=== PATIENT | female | born 1975 | race African-American/Black ===

== ENCOUNTER 2020-02-21 07:54 | Emergency (ER) | payer OTHER ==
[~2020-02-21] VITALS: Ht 165.1 cm; Wt 81.6 kg
[2020-02-21 08:30] LABS: BASOPHILS # (AUTO) 0.1 /CMM (0.0-0.2); EOSINOPHILS % (AUTO) 5.6 % (0.0-6.0); HEMATOCRIT 37 % (33-45); HEMOGLOBIN 11.8 g/dL (11.5-14.8); LYMPHOCYTES # (AUTO) 2.9 /CMM (0.8-4.8); LYMPHOCYTES % (AUTO) 44.5 % (20.0-44.0); MEAN CORPUSCULAR HGB CONC 32 g/dl (31.0-36.0); MEAN CORPUSCULAR VOLUME 89 fL (82-100); MONOCYTES # (AUTO) 0.3 /CMM (0.1-1.30); MONOCYTES % (AUTO) 5.2 % (2.0-12.0); NEUTROPHILS # (AUTO) 2.8 /CMM (1.8-8.9); NEUTROPHILS % (AUTO) 43.7 % (43.0-81.0); PLATELET COUNT (AUTO) 226 /CMM (150-450); RED BLOOD CELL COUNT(AUTO) 4.11 MIL/uL (4.0-5.2); WHITE BLOOD COUNT (AUTO) 6.4 K/uL (4.3-11.0)
--- NOTE | 2020-02-21 08:35 | NUR ---
Patient came in to the er c/o palpitations since last night, she coudn't sleeo because of that. On room air, breathing evenly and unlabored. connected to the monitor and pulse ox. kept comfortable, will continue to monitor accordingly.
--- NOTE | 2020-02-21 08:37 | NUR ---
pharmacy technician trainee at bedside for exam
[2020-02-21 08:38] LABS: CALCIUM, SERUM 8.8 mg/dL (8.5-10.1); CARBON DIOXIDE 27 mmol/L (21-32); CHLORIDE 103 mmol/L (98-107); CREATININE 0.9 mg/dL (0.6-1.3); GLUCOSE 107 mg/dL (74-106); POTASSIUM 3.8 mmol/L (3.5-5.1); SODIUM SERUM 137 mmol/L (136-145); UREA NITROGEN, BLOOD 9 mg/dL (7-18)
[2020-02-21 08:44] LABS: ALANINE AMINOTRANSFERASE 25 U/L (12-78); ALBUMIN 3.8 g/dL (3.4-5.0); ALKALINE PHOSPHATASE 50 U/L (46-116); ASPARTATE AMINOTRANSFERASE 7 U/L (15-37); BILIRUBIN,DIRECT 0.2 mg/dL (0.0-0.2); BILIRUBIN,TOTAL 0.7 mg/dL (0.2-1.0); TOTAL PROTEIN, SERUM 7.9 g/dL (6.4-8.2)
[2020-02-21] MEDS ORDERED: IOHEXOL-350 100 ML VIAL IV ONE (09:20)
[2020-02-21] MEDS ORDERED: IV NS 0.9% 250 ML IV ONE (09:21)
[2020-02-21] MEDS ORDERED: CT SWABBABLE VALVE TRANS SET 1 EA INFUS.SET MC ONE (09:21)
--- NOTE | 2020-02-21 09:33 | NUR ---
wheeled patient via gurney for ct angio
--- NOTE | 2020-02-21 11:05 | NUR ---
Note evan in ED - 02/21/20 at 1146 by DINA Patient discharged to home in stable condition. Written and verbal after care instructions given. Patient verbalizes understanding of instruction.IV removed. Catheter intact and site benign. Pressure and 4x4 applied to site. No bleeding noted.
--- NOTE | 2020-02-21 11:22 | NUR ---
Patient discharged to home in stable condition. Written and verbal after care instructions given. Patient verbalizes understanding of instruction.IV removed. Catheter intact and site benign. Pressure and 4x4 applied to site. No bleeding noted.
[2020-02-21 11:47] VITALS: BP 125/81
== END 2020-02-21 11:48 | disposition home or self-care (01) ==
LOC: ER 07:58
DX: I82.811 Embolism and thrombosis of superficial veins of right lower extremity (principal); R00.2 Palpitations; R06.02 Shortness of breath; Z88.6 Allergy status to analgesic agent
CPT/HCPCS: 36415; 71045; 71275; 80048; 80076; 84484; 84703; 85025; 85378; 93005; 93970; 99285; J7050; Q9967

== ENCOUNTER 2021-03-04 10:42 | Emergency (ER) | payer OTHER ==
[~2021-03-04] VITALS: Ht 162.6 cm; Wt 81.6 kg
[2021-03-04] MEDS ORDERED: ACETAMINOPHEN ES 500 MG TABLET PO ONE (11:00)
[2021-03-04 11:17] LABS: BASOPHILS # (AUTO) 0.1 /CMM (0.0-0.2); EOSINOPHILS % (AUTO) 3.6 % (0.0-6.0); HEMATOCRIT 36 % (33-45); HEMOGLOBIN 11.7 g/dL (11.5-14.8); LYMPHOCYTES # (AUTO) 2.5 /CMM (0.8-4.8); LYMPHOCYTES % (AUTO) 40.7 % (20.0-44.0); MEAN CORPUSCULAR HGB CONC 32 g/dl (31.0-36.0); MEAN CORPUSCULAR VOLUME 89 fL (82-100); MONOCYTES # (AUTO) 0.3 /CMM (0.1-1.30); MONOCYTES % (AUTO) 5.5 % (2.0-12.0); NEUTROPHILS # (AUTO) 3.1 /CMM (1.8-8.9); NEUTROPHILS % (AUTO) 49.2 % (43.0-81.0); PLATELET COUNT (AUTO) 258 /CMM (150-450); RED BLOOD CELL COUNT(AUTO) 4.08 MIL/uL (4.0-5.2); WHITE BLOOD COUNT (AUTO) 6.2 K/uL (4.3-11.0)
[2021-03-04] MEDS ORDERED: ACETAMINOPHEN 325 MG TABLET ONE (11:18)
[2021-03-04] MEDS ORDERED: ACETAMINOPHEN ES 500 MG TABLET ONE (11:19)
[2021-03-04 11:25] LABS: CALCIUM, SERUM 9.3 mg/dL (8.5-10.1); CARBON DIOXIDE 28 mmol/L (21-32); CHLORIDE 100 mmol/L (98-107); CREATININE 0.8 mg/dL (0.6-1.3); GLUCOSE 102 mg/dL (74-106); SODIUM SERUM 139 mmol/L (136-145); UREA NITROGEN, BLOOD 8 mg/dL (7-18)
[2021-03-04 11:31] LABS: ALANINE AMINOTRANSFERASE 27 U/L (12-78); ALBUMIN 3.9 g/dL (3.4-5.0); ALKALINE PHOSPHATASE 65 U/L (46-116); ASPARTATE AMINOTRANSFERASE 10 U/L (15-37); BILIRUBIN,DIRECT 0.1 mg/dL (0.0-0.2); BILIRUBIN,TOTAL 0.6 mg/dL (0.2-1.0)
--- NOTE | 2021-03-04 12:00 | NUR ---
No obvious distress No acute changes Dr Hagen in to discuss plan of care/more testing
[2021-03-04] MEDS ORDERED: APIX5TAB4 PO (13:07)
--- NOTE | 2021-03-04 13:14 | NUR ---
Pt agrees to have CTA done BUT NOT wait for results and wanting to sign AMA after states "Have to pick son from School". Dr rothman aware and discussed repercussions of signing AMA
[2021-03-04] MEDS ORDERED: IOHEXOL-350 100 ML VIAL IV ONE (13:16)
[2021-03-04] MEDS ORDERED: IV NS 0.9% 250 ML IV ONE (13:16)
[2021-03-04] MEDS ORDERED: CT SWABBABLE VALVE TRANS SET 1 EA INFUS.SET MC ONE (13:16)
[2021-03-04 13:34] VITALS: BP 142/85
== END 2021-03-04 13:36 | disposition left against medical advice (07) ==
LOC: ER 10:49
DX: I82.431 Acute embolism and thrombosis of right popliteal vein (principal); R06.02 Shortness of breath; Z20.822 Contact with and (suspected) exposure to COVID-19; Z83.3 Family history of diabetes mellitus; Z82.49 Family history of ischemic heart disease and other diseases of the circulatory system
CPT/HCPCS: 36415; 71045; 71275; 80048; 80076; 84484; 85025; 85378; 87426; 93005; 93971; 99285; C9803; J7050; Q9967

== ENCOUNTER 2022-04-27 10:50 | Emergency (ER) | payer OTHER ==
[~2022-04-27] VITALS: Ht 162.6 cm; Wt 114.3 kg
[~2022-04-27 10:50] MED LIST: APIX5TAB4 PO
--- NOTE | 2022-04-27 11:00 | NUR ---
Receved pt 46 yrs female c/o headach came and goses respiration spont and easy
--- NOTE | 2022-04-27 11:10 | NUR ---
dineses n/v wating to be seen by provider
--- NOTE | 2022-04-27 12:15 | NUR ---
blood drow by lab tach
[2022-04-27] MEDS ORDERED: ACETAMINOPHEN ES 500 MG TABLET PO ONE (12:30)
[2022-04-27] MEDS ORDERED: IV NS 0.9% 1,000 ML BAG IV ONE (12:30)
--- NOTE | 2022-04-27 12:33 | NUR ---
to ct scan of head
[2022-04-27 12:39] LABS: BASOPHILS % (AUTO) 0.4 % (0.0-2.0); EOSINOPHILS % (AUTO) 0.5 % (0.0-6.0); HEMATOCRIT 41 % (33-45); HEMOGLOBIN 12.8 g/dL (11.5-14.8); LYMPHOCYTES # (AUTO) 2.1 K/uL (0.8-4.8); LYMPHOCYTES % (AUTO) 63.2 % (20.0-44.0); MEAN CORPUSCULAR HGB CONC 32 g/dl (31.0-36.0); MEAN CORPUSCULAR VOLUME 88 fL (82-100); MONOCYTES # (AUTO) 0.3 K/uL (0.1-1.30); MONOCYTES % (AUTO) 8.8 % (2.0-12.0); NEUTROPHILS # (AUTO) 0.9 K/uL (1.8-8.9); NEUTROPHILS % (AUTO) 27.1 % (43.0-81.0); PLATELET COUNT (AUTO) 253 K/uL (150-450); RED BLOOD CELL COUNT(AUTO) 4.62 MIL/uL (4.0-5.2); WHITE BLOOD COUNT (AUTO) 3.3 K/uL (4.3-11.0)
[2022-04-27] MEDS ORDERED: ACETAMINOPHEN ES 500 MG TABLET ONE (12:39)
[2022-04-27 12:44] LABS: CALCIUM, SERUM 9.1 mg/dL (8.5-10.1)
--- NOTE | 2022-04-27 13:35 | NUR ---
RESSING AT THIS TIME NO SOB
[2022-04-27 13:38] LABS: BASOPHILS % (MANUAL) 0 % (0.0-2.0); EOSINOPHILS % (MANUAL) 0 % (0-4); LYMPHOCYTES % (MANUAL) 68 % (16-48); MONOCYTES % (MANUAL) 8 % (0-11.0); NEUTROPHILS % (MANUAL) 21 (42-76)
--- NOTE | 2022-04-27 14:42 | NUR ---
RESTING AT THIS TIME NO HEADACK
--- NOTE | 2022-04-27 15:30 | NUR ---
VALARIE FOR LAB RESULT
[2022-04-27] MEDS ORDERED: ACET-2605 PO (15:41)
[2022-04-27] MEDS ORDERED: CYCL5TAB PO (15:41)
--- NOTE | 2022-04-27 16:42 | NUR ---
URINE SENTE TO LAB
--- NOTE | 2022-04-27 18:30 | NUR ---
D/C HL DONE D/C INSTRACTION AND RX GIVEN TO PT FULLY AND VERBLIZED UNDERSTOOD
[2022-04-27 18:49] VITALS: BP 121/84
== END 2022-04-27 18:51 | disposition home or self-care (01) ==
LOC: ER 11:58
DX: R51.9 Headache, unspecified (principal); I10 Essential (primary) hypertension; Z88.6 Allergy status to analgesic agent; Z79.899 Other long term (current) drug therapy
CPT/HCPCS: 99285; 96360; 70450; 85025; 80048; 84703; 36415; 85007; J7030

== ENCOUNTER 2022-11-04 11:38 | Emergency (ER) | payer OTHER ==
[~2022-11-04] VITALS: Ht 162.6 cm; Wt 81.6 kg
[~2022-11-04 11:38] MED LIST changes: +ACET-2605 PO; +CYCL5TAB PO
--- NOTE | 2022-11-04 12:10 | NUR ---
PT SEEN BY DR LAL
--- NOTE | 2022-11-04 12:11 | NUR ---
URINE SAMPLE COLLECTED AND SENT TO LAB
--- NOTE | 2022-11-04 12:17 | NUR ---
TECH AT BEDSIDE FOR EKG
--- NOTE | 2022-11-04 12:35 | NUR ---
rac #[id number], blood drawn and sent to lab
[2022-11-04] MEDS ORDERED: IOHEXOL-350 100 ML VIAL IV ONE (12:37)
[2022-11-04] MEDS ORDERED: IV NS 0.9% 250 ML IV ONE (12:37)
[2022-11-04] MEDS ORDERED: CT SWABBABLE VALVE TRANS SET 1 EA INFUS.SET MC ONE (12:37)
--- NOTE | 2022-11-04 12:45 | NUR ---
pt taken to radiology for ct
[2022-11-04 12:58] LABS: BASOPHILS % (AUTO) 0.5 % (0.0-2.0); EOSINOPHILS % (AUTO) 2.3 % (0.0-6.0); HEMATOCRIT 35 % (33-45); HEMOGLOBIN 10.8 g/dL (11.5-14.8); LYMPHOCYTES # (AUTO) 2.6 K/uL (0.8-4.8); LYMPHOCYTES % (AUTO) 45.7 % (20.0-44.0); MEAN CORPUSCULAR HGB CONC 31 g/dl (31.0-36.0); MEAN CORPUSCULAR VOLUME 88 fL (82-100); MONOCYTES # (AUTO) 0.3 K/uL (0.1-1.30); MONOCYTES % (AUTO) 4.6 % (2.0-12.0); NEUTROPHILS # (AUTO) 2.6 K/uL (1.8-8.9); NEUTROPHILS % (AUTO) 46.9 % (43.0-81.0); PLATELET COUNT (AUTO) 267 K/uL (150-450); RED BLOOD CELL COUNT(AUTO) 3.98 MIL/uL (4.0-5.2); WHITE BLOOD COUNT (AUTO) 5.6 K/uL (4.3-11.0)
[2022-11-04 13:04] LABS: CALCIUM, SERUM 8.9 mg/dL (8.5-10.1); CARBON DIOXIDE 29 mmol/L (21-32); CHLORIDE 102 mmol/L (98-107); CREATININE 0.9 mg/dL (0.6-1.3); GLUCOSE 82 mg/dL (74-106); SODIUM SERUM 137 mmol/L (136-145); UREA NITROGEN, BLOOD 10 mg/dL (7-18)
[2022-11-04 13:11] LABS: D-DIMER 0.19 mg/L(FEU (0.17-0.50)
--- NOTE | 2022-11-04 13:26 | NUR ---
TECH AT BEDSIDE FOR ULTRASOUND
[2022-11-04] MEDS ORDERED: APIX5TAB PO (14:19)
[2022-11-04 14:32] VITALS: BP 138/76
--- NOTE | 2022-11-04 14:32 | NUR ---
IV removed. Catheter intact and site benign. Pressure and 4x4 applied to site. No bleeding noted.
--- NOTE | 2022-11-04 14:32 | NUR ---
Patient discharged to home in stable condition. Written and verbal after care instructions given. Patient verbalizes understanding of instruction.
== END 2022-11-04 14:33 | disposition home or self-care (01) ==
LOC: ER 11:49
DX: R42 Dizziness and giddiness (principal); R07.9 Chest pain, unspecified; Z88.8 Allergy status to other drugs, medicaments and biological substances; Z79.899 Other long term (current) drug therapy
CPT/HCPCS: 99285; 71275; 93971; 93005; 85025; 80048; 85378; 84703; 36415; 84484; 85730; 83880; J7050; Q9967

== ENCOUNTER 2023-07-05 08:44 | Emergency (ER) | payer OTHER ==
[~2023-07-05] VITALS: Ht 162.6 cm; Wt 113.9 kg
[~2023-07-05 08:44] MED LIST changes: +APIX5TAB PO
[2023-07-05] MEDS ORDERED: hydrALAZINE HCL IV 20 MG VIAL ONE ×2 (09:18→10:29)
[2023-07-05 09:28] LABS: BASOPHILS # (AUTO) 0.1 K/uL (0.0-0.2); BASOPHILS % (AUTO) 1.1 % (0.0-2.0); EOSINOPHILS # (AUTO) 0.1 K/uL (0.0-0.7); EOSINOPHILS % (AUTO) 1.8 % (0.0-6.0); HEMATOCRIT 35 % (33-45); HEMOGLOBIN 10.9 g/dL (11.5-14.8); LYMPHOCYTES # (AUTO) 2.7 K/uL (0.8-4.8); LYMPHOCYTES % (AUTO) 42.8 % (20.0-44.0); MEAN CORPUSCULAR HEMOGLOBIN 27 PG (26.0-33.0); MEAN CORPUSCULAR HGB CONC 32 g/dl (31.0-36.0); MEAN CORPUSCULAR VOLUME 87 fL (82-100); MONOCYTES # (AUTO) 0.3 K/uL (0.1-1.30); NEUTROPHILS # (AUTO) 3.1 K/uL (1.8-8.9); NEUTROPHILS % (AUTO) 49.3 % (43.0-81.0); PLATELET COUNT (AUTO) 263 K/uL (150-450); RED BLOOD CELL COUNT(AUTO) 4.01 MIL/uL (4.0-5.2); RED CELL DISTRIBUTION WIDTH 15.3 % (11.5-15.0); WHITE BLOOD COUNT (AUTO) 6.2 K/uL (4.3-11.0)
[2023-07-05] MEDS ORDERED: hydrALAZINE HCL IV 20 MG VIAL IV ONE ×2 (09:30→10:30)
[2023-07-05 09:35] LABS: CALCIUM, SERUM 8.9 mg/dL (8.5-10.1); CARBON DIOXIDE 28 mmol/L (21-32); CHLORIDE 102 mmol/L (98-107); CREATININE 0.8 mg/dL (0.6-1.3); GLUCOSE 108 mg/dL (74-106); POTASSIUM 4.1 mmol/L (3.5-5.1); SODIUM SERUM 138 mmol/L (136-145); UREA NITROGEN, BLOOD 7 mg/dL (7-18)
[2023-07-05] MEDS ORDERED: LOSARTAN POTASSIUM 25 MG TABLET ONE (10:56)
[2023-07-05] MEDS ORDERED: LOSARTAN POTASSIUM 25 MG TABLET PO ONE (11:00)
[2023-07-05] MEDS ORDERED: LOSA25TA27 PO ×2 (11:17→12:42)
[2023-07-05] MEDS ORDERED: APIX5TAB PO (11:17)
[2023-07-05 14:30] VITALS: BP 176/96; TEMP 98; O2SAT 100
== END 2023-07-05 12:42 | disposition home or self-care (01) ==
LOC: ER 08:49
DX: I10 Essential (primary) hypertension (principal); R07.89 Other chest pain; R42 Dizziness and giddiness; Z79.899 Other long term (current) drug therapy; Z88.1 Allergy status to other antibiotic agents
CPT/HCPCS: 99285; 96374; 71045; 93005 ×3; 96376; 85025; 80048; 36415; 84484 ×2; J0360 ×2

== ENCOUNTER 2023-07-17 22:12 | Emergency (ER) | payer OTHER ==
[~2023-07-17] VITALS: Ht 162.6 cm; Wt 86.2 kg
[~2023-07-17 22:12] MED LIST changes: -ACET-2605 PO; -APIX5TAB4 PO; -CYCL5TAB PO; +LOSA25TA27 PO
[2023-07-17] MEDS ORDERED: hydrALAZINE HCL IV 20 MG VIAL IV ONE (23:30)
[2023-07-17] MEDS ORDERED: hydrALAZINE HCL IV 20 MG VIAL ONE (23:56)
[2023-07-18 00:01] LABS: BASOPHILS # (AUTO) 0.1 K/uL (0.0-0.2); BASOPHILS % (AUTO) 0.8 % (0.0-2.0); EOSINOPHILS # (AUTO) 0.2 K/uL (0.0-0.7); EOSINOPHILS % (AUTO) 3.3 % (0.0-6.0); HEMATOCRIT 34 % (33-45); HEMOGLOBIN 10.7 g/dL (11.5-14.8); LYMPHOCYTES # (AUTO) 3.5 K/uL (0.8-4.8); LYMPHOCYTES % (AUTO) 48.9 % (20.0-44.0); MEAN CORPUSCULAR HEMOGLOBIN 27 PG (26.0-33.0); MEAN CORPUSCULAR HGB CONC 31 g/dl (31.0-36.0); MEAN CORPUSCULAR VOLUME 86 fL (82-100); MONOCYTES # (AUTO) 0.4 K/uL (0.1-1.30); MONOCYTES % (AUTO) 5.8 % (2.0-12.0); NEUTROPHILS # (AUTO) 2.9 K/uL (1.8-8.9); NEUTROPHILS % (AUTO) 41.2 % (43.0-81.0); PLATELET COUNT (AUTO) 263 K/uL (150-450); RED BLOOD CELL COUNT(AUTO) 3.98 MIL/uL (4.0-5.2); RED CELL DISTRIBUTION WIDTH 14.7 % (11.5-15.0); WHITE BLOOD COUNT (AUTO) 7.1 K/uL (4.3-11.0)
[2023-07-18 00:15] LABS: ALANINE AMINOTRANSFERASE 27 U/L (12-78); ALBUMIN 3.9 g/dL (3.4-5.0); ALKALINE PHOSPHATASE 67 U/L (46-116); ASPARTATE AMINOTRANSFERASE 8 U/L (15-37); BILIRUBIN,DIRECT 0.1 mg/dL (0.0-0.2); BILIRUBIN,TOTAL 0.5 mg/dL (0.2-1.0); CALCIUM, SERUM 9.3 mg/dL (8.5-10.1); CARBON DIOXIDE 27 mmol/L (21-32); CHLORIDE 101 mmol/L (98-107); GLUCOSE 99 mg/dL (74-106); POTASSIUM 3.9 mmol/L (3.5-5.1); SODIUM SERUM 138 mmol/L (136-145); UREA NITROGEN, BLOOD 11 mg/dL (7-18)
[2023-07-18] MEDS ORDERED: ACETAMINOPHEN 325 MG TABLET PO ONE (02:30)
[2023-07-18] MEDS ORDERED: ACETAMINOPHEN ES 500 MG TABLET ONE (02:31)
[2023-07-18 04:39] VITALS: BP 136/63; TEMP 98.1; O2SAT 99
== END 2023-07-18 04:39 | disposition home or self-care (01) ==
LOC: ER 22:15
DX: I10 Essential (primary) hypertension (principal); R42 Dizziness and giddiness; G47.30 Sleep apnea, unspecified; Z79.899 Other long term (current) drug therapy; Z88.1 Allergy status to other antibiotic agents
CPT/HCPCS: 99285; 70450; 71045; 93005 ×2; 85025; 80048; 80076; 36415 ×2; 84484 ×2; 96374; J0360

== ENCOUNTER 2023-07-22 20:10 | Emergency (ER) | payer OTHER ==
[~2023-07-22] VITALS: Ht 165.1 cm; Wt 86.2 kg
[2023-07-22 20:36] VITALS: BP 149/97; TEMP 98.6; O2SAT 98
== END 2023-07-22 23:10 | disposition home or self-care (01) ==
LOC: ER 20:11
DX: I10 Essential (primary) hypertension (principal); Z88.6 Allergy status to analgesic agent